=== PATIENT | female | born 1975 | race Caucasian/White ===

== ENCOUNTER 2017-08-05 04:17 | Emergency (ER) | payer MEDICAID ==
[~2017-08-05] VITALS: Ht 149.9 cm; Wt 52.2 kg
[2017-08-05 04:21] VITALS: BP 134/85
== END 2017-08-05 05:21 | disposition home or self-care (01) ==
LOC: ED 04:17
DX: F41.9 Anxiety disorder, unspecified (principal); G47.00 Insomnia, unspecified; J34.89 Other specified disorders of nose and nasal sinuses